=== PATIENT | female | born 1950 | race Caucasian/White ===

== ENCOUNTER → 2018-08-28 | Outpatient (CLI) | payer MEDICARE, OTHER ==
[2018-09-01 15:07] LABS: HPV 16 Negative (Negative); HPV 18 Negative (Negative); HPV OTHER HR TYPES Negative (Negative)
== END | disposition home or self-care (01) ==
LOC: LAB SHORT 17:50 → LAB 17:50
PROVIDERS: Nurse Practitioner Women's Health
DX: Z12.4 Encounter for screening for malignant neoplasm of cervix (principal); N89.8 Other specified noninflammatory disorders of vagina
CPT/HCPCS: 87070; 87147; 87205; 87624; G0123

== ENCOUNTER → 2019-05-19 | Outpatient (CLI) | payer MEDICARE, OTHER ==
[2019-05-19 15:47] LABS: Creatinine Urine 35.4 mg/dL (27.00-270.00)
== END | disposition home or self-care (01) ==
LOC: LAB 06:25 → LAB SHORT 06:25 → LAB FUT 05-13 10:00
PROVIDERS: Internal Medicine
DX: I10 Essential (primary) hypertension (principal); E87.6 Hypokalemia
CPT/HCPCS: 36415; 81050; 82575; 84133

== ENCOUNTER 2025-03-25 08:03 | Day surgery (SDC) | payer OTHER ==
[~2025-03-25 08:03] MED LIST: AMLODIPINE-OLM1 EAC4; ATOR10
== END 2025-03-25 23:00 | disposition home or self-care (01) ==
LOC: CT 08:03
DX: I45.10 Unspecified right bundle-branch block (principal)
CPT/HCPCS: 75571